=== PATIENT | female | born 1980 | race Caucasian/White ===

== ENCOUNTER 2024-08-28 18:15 | Emergency (ER) | payer BC ==
[2024-08-28 18:20] VITALS: BP 125/81; PULSE 85; RESP 16; TEMP 97.6
--- NOTE | 2024-08-28 19:01 | ED ---
Female Urogenital HPI - General Chief complaint: Urogenital Stated complaint: Urogenital Time Seen by Provider: 08/28/24 18:21 Source: patient Mode of arrival: ambulatory Limitations: no limitations - History of Present Illness Initial comments: 44-year-old female presents emergency department for vulvar pain. Patient states has been going on for the past 2 days. She reports that she has swelling of her labia. Denies vaginal bleeding or discharge. No concern for sexually transmitted infections. No concern for . Denies dysuria, hematuria or difficulty voiding. No black or bloody stools. No other alleviating, precipitating roughing factors Last Menstrual Period: 08/28/24 - Related Data Allergies Allergy/AdvReac Type Severity Reaction Status Date / Time No Known Allergies Allergy Verified 08/28/24 18:20 Review of Systems ROS Statement: Those systems with pertinent positive or pertinent negative responses have been documented in the HPI. ROS Other: All systems not noted in ROS Statement are negative. Past Medical History Past Medical History: No Reported History Past Surgical History: No Surgical Hx Reported Smoking Status: Never smoker Past Alcohol Use History: Rare Past Drug Use History: None Reported General Exam Limitations: no limitations General appearance: alert Head exam: Present: atraumatic, normocephalic, normal inspection External exam: Present: other (Patient has an ingrown follicle near the 2 o'clock position with some pustular drainage noted near the central aspect. Area measures approximately 5 mm. No ulcerative lesions). Absent: lacerations, ecchymosis Speculum exam: Absent: vaginal discharge Skin exam: Present: warm, dry, intact, normal color. Absent: rash Course Vital Signs 08/28/24 18:17 Temperature 97.6 F Pulse Rate 85 Respiratory 16 Rate Blood Pressure 125/81 O2 Sat by Pulse 100 Oximetry Medical Decision Making - Medical Decision Making Was pt. sent in by a medical professional or institution (, PA, DISTRIBUTION SUPERINTENDENT, urgent care, hospital, or shelter...) When possible be specific @ -No Did you speak to anyone other than the patient for history (EMS, parent, family, police, friend...)? What history was obtained from this source @ -No Did you review nursing and triage notes (agree or disagree)? Why? @ -I reviewed and agree with nursing and triage notes Were old charts reviewed (outside hosp., previous admission, EMS record, old EKG, old radiological studies, urgent care reports/EKG's, shelter records)? Report findings @ -No old charts were reviewed Differential Diagnosis (chest pain, altered mental status, abdominal pain women, abdominal pain men, vaginal bleeding, weakness, fever, dyspnea, syncope, headache, dizziness, GI bleed, back pain, seizure, CVA, palpatations, mental health, musculoskeletal)? @ -Abscess, cellulitis, folliculitis, herpes EKG interpreted by me (3pts min.). @ -Not done X-rays interpreted by me (1pt min.). @ -None done CT interpreted by me (1pt min.). @ -None done U/S interpreted by me (1pt. min.). @ -None done What testing was considered but not performed or refused? (CT, X-rays, U/S, labs)? Why? @ -None What meds were considered but not given or refused? Why? @ -None Did you discuss the management of the patient with other professionals (professionals i.e. , PA, DISTRIBUTION SUPERINTENDENT, lab, RT, psych nurse, social studies teacher, golf instructor, teacher, special assets officer, case technician)? Give summary @ -No Was smoking cessation discussed for >3mins.? @ -No Was critical care preformed (if so, how long)? @ -No Were there social determinants of health that impacted care today? How? (Homelessness, low income, unemployed, alcoholism, drug addiction, transportation, low edu. Level, literacy, decrease access to med. care, [facility], rehab)? @ -No Was there de-escalation of care discussed even if they declined (Discuss DNR or withdrawal of care, Hospice)? DNR status @ -No What co-morbidities impacted this encounter? (DM, HTN, Smoking, COPD, CAD, Cancer, CVA, ARF, Chemo, Hep., AIDS, mental health diagnosis, sleep apnea, morbid obesity)? @ -None Was patient admitted / discharged? Hospital course, mention meds given and route, prescriptions, significant lab abnormalities, going to OR and other pertinent info. @ -Upon arrival patient seen and evaluated in bed 17. Thorough history and physical exam was performed. Patient does have a small plugged follicle. I did express the area and did release some pustular drainage. At this time patient will be discharged home. Place a small amount of bacitracin to the area. I recommend sitz bath's and continuing to express the area and return for any new or worsening symptoms. Patient agreeable plan was discharged home in stable condition Undiagnosed new problem with uncertain prognosis? @ -No Drug Therapy requiring intensive monitoring for toxicity (Heparin, Nitro, Insulin, Cardizem)? @ -No Were any procedures done? @ -No Diagnosis/symptom? @ -Small vulvar abscess Acute, or Chronic, or Acute on Chronic? @ -Acute Uncomplicated (without systemic symptoms) or Complicated (systemic symptoms)? @ -Uncomplicated Side effects of treatment? @ -No Exacerbation, Progression, or Severe Exacerbation? @ -No Poses a threat to life or bodily function? How? (Chest pain, [place], MA, pneumonia, PE, COPD, DKA, ARF, appy, cholecystitis, CVA, Diverticulitis, Homicidal, Suicidal, threat to staff... and all critical care pts) @ -No Disposition Clinical Impression: Abscess of vagina Disposition: HOME SELF-CARE Condition: Stable Instructions (If sedation given, give patient instructions): Abscess (ED) Additional Instructions: An abscess is like a small pimple. The treatment is to open the area. The abscess has been opened. Please place Bacitracin to the area twice a day. Fill your bath tub up a few inches with warm water and sit in it for 5 minutes, then try and express the area to keep it draining. It will close up and heal within a few days. Follow up with your OBGYN to ensure resolution otherwise a larger incision may have to be completed to let it drain. Is patient prescribed a controlled substance at d/c from ED?: No Referrals: Katie Poole MD [Primary Care Provider] - 1-2 days Time of Disposition: 19:01
== END 2024-08-28 19:05 | disposition home or self-care (01) ==
LOC: EC 18:15
DX: N76.4 Abscess of vulva (principal)
CPT/HCPCS: 99283